=== PATIENT | male | born 1955 | race Caucasian/White ===

== ENCOUNTER → 2016-07-26 | Day surgery (SDC) | payer OTHER ==
--- NOTE | 2016-07-22 11:50 | PAT Medication Instructions ---
Service Date Jul 22, 2016. Current Home Medication List Atorvastatin (Lipitor), 40 MG PO NOON Clobetasol Propionate (Clobetasol Propionate), 1 APPLN TOP BID PRN for PRN Clonazepam (Klonopin), 1 MG PO BID PRN for Anxiety Ibuprofen (Ibuprofen), 1 TAB PO TID PRN for Pain Lisinopril (Zestril), 10 MG PO NOON Paroxetine (Paxil), 30 MG PO QAM Valacyclovir (Valtrex), 1,000 MG PO UD PRN for COLD SORES Medication Instructions For Your Scheduled Surgery - Check with surgeon for instructions: Ibuprofen (Ibuprofen), 1 TAB PO TID PRN for Pain - Hold the following medications 24 hours prior to surgery: Lisinopril (Zestril), 10 MG PO NOON Clobetasol Propionate (Clobetasol Propionate), 1 APPLN TOP BID PRN for PRN - Hold the following medications the morning of surgery: Valacyclovir (Valtrex), 1,000 MG PO UD PRN for COLD SORES - Take the following medications the morning of surgery with a sip of water: Paroxetine (Paxil), 30 MG PO QAM Clonazepam (Klonopin), 1 MG PO BID PRN for Anxiety - Take the following medications as scheduled the night before surgery: Valacyclovir (Valtrex), 1,000 MG PO UD PRN for COLD SORES Clonazepam (Klonopin), 1 MG PO BID PRN for Anxiety Atorvastatin (Lipitor), 40 MG PO NOON If you have any questions please call us at [phone] (Judit Saleh PA-C ) or [phone] or [phone]
[~2016-07-26] VITALS: Ht 180.3 cm; Wt 97.7 kg
[~2016-07-26] MED LIST: ATOR-24 PO; ATROPINE SULFATE 0.1 MG/ML 5ML SYR IV PRN; BUPIVACAINE 0.5 % 5 MG/1 ML MPF 30ML VIAL ONE; CEFAZOLIN 2000 MG/60 ML D5W IV SCH; CLBPO15 TOP; CLON1TAB3 PO; DEXAMETHASONE SOD INJ 4 MG/ML VIAL ONE; EpHEDrine SULFATE 50MG/5ML SYR ONE; EpHEDrine SULFATE INJ 50 MG/ML AMP IV PRN; FENTANYL CITRATE INJ 50 MCG/1 ML 2 ML VIAL IV PRN; FENTANYL CITRATE INJ 50 MCG/1 ML 2 ML VIAL ONE; HYDROmorphone INJ 1 MG/ML SYR IV PRN; LABETALOL HCL IV 5 MG/ML 20ML IV PRN; LACTATED RINGER'S 1000ML 1,000 ML IV SCH; LIDOCAINE HCL 2% 2 ML VIAL (20MG/ML) ONE; LISI-461 PO; MEPERIDINE HCL 25 MG/ML CARP IV PRN; MIDAZOLAM HCL 1 MG/ML 2ML VIAL ONE; MTR800 PO; MoRPHine SULFATE 4 MG/ML 1 ML CARP\\VIAL IV PRN; ONDANSETRON INJ 2 MG/ML 2 ML VIAL IV PRN; ONDANSETRON INJ 2 MG/ML 2 ML VIAL ONE; OXYCODONE/ACETAMINOPHEN 5-325 TAB PO PRN; PARO1TAB27 PO; PROPOFOL IV EMULSION 10 MG/ML 20 ML VIAL IV ONE; SODIUM CHLORIDE 0.9% 1000ML 1,000 ML IV SCH; VALA500T60 PO
[2016-07-26 07:20] VITALS: BP 125/76; PULSE 64; TEMP 36.8; O2SAT 98; Ht 180.3 cm; Wt 97.7 kg
--- NOTE | 2016-07-26 08:45 | History & Physical Bridge Note ---
H&P Re-Evaluation Bridge Note: I have examined the patient, reviewed the History & Physical and in the interval since the performance of the History & Physical I have noted the following changes of clinical significance: No changes noted
--- NOTE | 2016-07-26 10:30 | [facility] Post Operative Brief Note ---
Immediate Operative Summary Operative Date Jul 26, 2016. Pre-Operative Diagnosis Left inguinal hernia Post-Operative Diagnosis Left indirect inguinal hernia Procedure(s) Performed Repair of left indirect inguinal hernia Surgeon Don Sylvester MD Director Report Surgeon(s) Judit Herrera PA-C Estimated Blood Loss 5 cc Findings See dictation Specimens None Drains None Anesthesia General Complication(s) None Disposition Recovery Room / PACU
--- NOTE | 2016-07-26 10:34 | Discharge Instructions ---
Discharge Instructions Date of Service Jul 26, 2016. Admission Reason for Admission: Left Inguinal Hernia Discharge Discharge Diagnosis / Problem: Same Discharge Goals Goal(s): Decrease discomfort Activity Recommendations Activity Limitations: per Instructions/Follow-up section Lifting Limitations: no more than 10 pounds Shower/Bathe: tomorrow (Shower only) . Instructions / Follow-Up Instructions / Follow-Up ACTIVITY RECOMMENDATIONS: * Walk as much as possible. * No heavy lifting (>10 lbs.) for 2 weeks. SPECIAL CARE INSTRUCTIONS: * Ice to hernia repair site on and off until bedtime tonight. * May shower in 24 hours. Let water run over area and pat dry. * Leave steri strips on for one week. * Call the surgeon's office with any questions or concerns - (ex. temperature higher than 101 degrees F, excessive bleeding or pain). MEDICATIONS: Resume previous medications unless instructed otherwise by your surgeon. * Ibuprofen 600 mg every 6 hours with food * Percocet 1 every 4 hours, as needed for pain FOLLOW UP VISIT: If not already scheduled, please call the office to schedule a two week follow- up appointment. Office number Current Hospital Diet Patient's current hospital diet: Discharge Diet Recommended Diet: Regular Diet Procedures Procedures Performed: Repair of left indirect inguinal hernia Pending Studies Studies pending at discharge: no Medical Emergencies . Who to Call and When: Medical Emergencies: If at any time you feel your situation is an emergency, please call 911 immediately. . Non-Emergent Contact Non-Emergency issues call your: Primary Care Provider, Surgeon Call Non-Emergent contact if: your pain is worsening, wound has increased redness, wound has increased pain . "Provider Documentation" section prepared by Don Sylvester. VTE Core Measure Inpt VTE Proph given/why not?: Treatment not indicated
--- NOTE | 2016-07-26 11:13 | OPERATIVE REPORT ---
DATE OF OPERATION: 07/26/2016 PREOPERATIVE DIAGNOSIS: Left inguinal hernia. POSTOPERATIVE DIAGNOSIS: Left indirect inguinal hernia. PROCEDURE: Repair of left indirect inguinal hernia with mesh. SURGEON: Dr. Sylvester. SALES REPRESENTATIVE [employer] SERVICE: Judit Herrera PA-C. FINDINGS: The patient had a small to moderate sized indirect inguinal hernia. There was weakness in the floor of the canal, but no true direct hernia. The cord structures were normal. TECHNIQUE: The patient was given a general anesthetic and the area was prepped and draped in usual sterile fashion. Left inguinal incision was made, carried down through the subcutaneous tissue. There was 1 bridging vein that was doubly clamped, divided, and ligated with 3-0 Vicryl ties. Further dissection was carried posteriorly until the external oblique and the external ring were identified. A small incision was made in the external oblique. The underlying structures were off its undersurface and it was opened through the external ring. The cord structures were all isolated at the pubic tubercle, away from the floor of the canal and away from the floor up to the internal ring. The cremasteric fibers were then opened circumferentially and a lipoma of the cord was identified. It was away from the cord structures up to just inside the internal ring where it was clamped, amputated, and ligated with 3-0 Vicryl tie. That allowed me then to further dissect additional cremasterics until the hernia sac could be identified. The hernia sac was then away from the cord structures. In certain areas, it was fairly adherent and I suspected that the hernia had been there for quite some time. All of these attachments were divided until the hernia sac was completely freed from the mclaughlin of the canal and from the cord structures. It was placed back into its anatomic position. The floor of the canal was oversewn to create a new internal ring that admitted the tip of my finger and that was done with a running 0 PDS. A preformed inguinal hernia mesh was placed in the floor of the canal and sewn to the anterior surface of the internal oblique medially, tissue over the pubic bone inferiorly, and shelving border of the inguinal ligament laterally. The legs of the mesh were approximated to each other to create a new internal ring. All that mesh suturing was done with 0 PDS. Cord structures were placed back into their anatomic position and the external oblique was closed over them using a running 2-0 Vicryl. The deep subcutaneous tissue was closed with running 2-0 Vicryl, the superficial subcutaneous tissue was closed with running 3-0 Vicryl, and the skin was closed with 4-0 Monocryl in a running subcuticular fashion. The skin was anesthetized with 0.5% Marcaine. The skin was cleansed, dried, benzoin placed, Steri-Strips applied. The estimated blood loss was 5 mL. Sponge, needle and instrument counts were correct prior to closure. The patient tolerated surgical procedure without complication and was transferred to recovery. I attest to the content of the Intraoperative Record and any orders documented therein. Any exceptio ns are noted below.
--- NOTE | 2016-07-26 11:20 | Anesthesiology Progress Note ---
Anesthesia Post Op Note Date & Time Jul 26, 2016 at 11:20 Vital Signs Pain Intensity: 0 Vital Signs Past 12 Hours Date Time Temp Pulse Resp B/P Pulse Ox O2 Delivery O2 Flow Rate FiO2 07/26/16 11:15 71 12 129/82 95 Room Air 07/26/16 11:05 72 25 142/90 100 Mask 10 07/26/16 10:55 64 25 146/91 100 Mask 10 07/26/16 10:49 36.3 62 16 143/96 100 Mask 10 07/26/16 07:20 36.8 64 18 125/76 98 Room Air Notes Mental Status: alert / awake / arousable, participated in evaluation Pt Amnestic to Procedure: Yes Nausea / Vomiting: adequately controlled Pain: adequately controlled Airway Patency, RR, SpO2: stable & adequate BP & HR: stable & adequate Hydration State: stable & adequate Anesthetic Complications: no major complications apparent
[2016-07-26 11:32] VITALS: BP 137/86; PULSE 72; TEMP 36.6; O2SAT 96
[2016-07-26 12:00] VITALS: BP 125/82; PULSE 62; O2SAT 97
[2016-07-26 12:30] VITALS: BP 123/79; PULSE 77; TEMP 36.7; O2SAT 95
== END | disposition home or self-care (01) ==
LOC: C.ACU 07-22 10:50
PROVIDERS: ATTEND Surgery
DX: K40.90 Unilateral inguinal hernia, without obstruction or gangrene, not specified as recurrent (principal); D17.6 Benign lipomatous neoplasm of spermatic cord; F17.210 Nicotine dependence, cigarettes, uncomplicated